=== PATIENT | female | born 1940 | race Caucasian/White ===

== ENCOUNTER 2017-01-05 08:42 | Day surgery (SDC) | payer MEDICARE, MEDICAID ==
[~2017-01-05 08:42] MED LIST: Acetaminophen TAB* 325 MG PO PRN; Buffered Lidocaine 0.9% SYRIN* 5 ML/SYR SYRINGE INTRADERM ONE; Cyclopentolate 1% OPTH.SOL* 2 ML BTL ONE; Flurbiprofen 0.03% OPTH.SOL* 2.5 ML BTL ONE; Lidocaine 2% EPI 1:200000 MPF* 20 ML VIAL ONE; Lidocaine 2% MPF* 2 ML VIAL ONE; Neomycin/Polymy/Dex OPTH.SUSP* MAXITROL 0.1% 5 ML ONE; Phenylephrine 2.5% OPTH.SOL* 2 ML BTL ONE; Povidone Iodine 5% OPTH* 30 ML BTL ONE; Proparacaine 0.5% OPHTH.SOL* 15 ML BTL ONE; acetaZOLAMIDE TAB* 250 MG ONE
[2017-01-05] MEDS ORDERED: Midazolam* 1 MG/ML 2 ML VIAL (2 MG) ONE (10:01)
[2017-01-05] MEDS ORDERED: fentaNYL* 50 MCG/ML 2 ML VIAL (100 MCG VIAL) ONE (10:01)
[2017-01-05 11:54] VITALS: BP 121/63
--- NOTE | 2017-01-05 14:49 | OP ---
OPERATIVE NOTE: DATE OF OPERATION: 01/05/17 DATE OF : 38 SURGEON: Jun Patel M.D. PREOPERATIVE DIAGNOSIS: Cataract right eye. POSTOPERATIVE DIAGNOSIS: Cataract right eye. OPERATIVE PROCEDURE: Phacoemulsification right eye with IOL and CTR PROCEDURE: The patient was brought to the operating room after being given 1/2% Alcaine with epinep hrine drops in the preoperative area. The eye was prepped and draped in the usual sterile fashion. Sterile drape and eyelid speculum were placed. Again, topical 1/2% Alcaine with epinephrine was gi lucia. A paracentesis incision was made at the 9 o'clock position with the No.75 blade. Clear cornea incision 2.2 x 2.2-mm was created at the 12 o'clock position starting at the anterior limbus using the 2.2-mm keratome. The anterior chamber was irrigated with 0.4 mL of 1% non-preservative intracam eral lidocaine and filled with DisCoVisc. A capsulorrhexis was completed using the cystotome and raphael e Utrata forceps. Hydrodissection was performed with balanced salt solution. The lens nucleus was r emoved with the Phacoemulsification handpiece without incident. Cortex was removed with the irrigat ion-aspiration handpiece. The capsular bag was re-inflated using DisCoVisc and an [id number] implant was inserted with the shooter followed by capsular tension ring a CTR 11. The irrigation-aspiratio n handpiece was used to remove all residual DisCoVisc. The eye was refilled with balanced salt solu tion and the wound checked and found to be watertight. Topical Maxitrol drops were given. [id number]/[facility] #: [id number]
== END 2017-01-05 11:51 | disposition home or self-care (01) ==
LOC: OREAST 08:42
PROVIDERS: ATTEND Specialist
DX: H25.811 Combined forms of age-related cataract, right eye (principal); H40.1424 Capsular glaucoma with pseudoexfoliation of lens, left eye, indeterminate stage; I10 Essential (primary) hypertension
CPT/HCPCS: A9270-GY; J2250; J3010; V2632

== ENCOUNTER 2024-05-02 08:29 | Observation (INO) ==
[2024-05-02 09:29] LABS: ABS Eosinophils 0.1 10^3/uL (0.0-0.5); ABS Lymphocytes 0.8 10^3/uL (1.0-4.8); ABS Monocytes 0.4 10^3/uL (0.0-0.9); ABS Neutrophils 3.6 10^3/uL (1.5-7.6); Eosinophil % 1.2 %; Hematocrit 34.2 % (35-45); Hemoglobin 11.6 g/dL (11.5-14.3); Lymphocyte % 16.1 %; Mean Corpuscular Hemoglobin 31.1 pg (27-33); Mean Corpuscular Hgb Conc 33.9 g/dL (31-36); Mean Corpuscular Volume 91.9 fL (80-97); Mean Platelet Volume 6.4 fL (7.5-11.2); Nucleated Red Blood Cells % 0.1 %/100WBC (0.0-0.8); Platelet Count 429 10^3/uL (150-450); Red Blood Count 3.72 10^6/uL (3.63-4.92); Red Cell Distribution Width 16.1 % (12-17)
[2024-05-02 10:06] LABS: Albumin 3.7 g/dL (3.2-5.2); Albumin/Globulin Ratio 1.2 (1-3); Calcium 8.7 mg/dL (8.6-10.3); Creatinine, Serum 0.64 mg/dL (0.51-0.95); Globulin 3.1 g/dL (2-4); Magnesium 2.1 mg/dL (1.9-2.7); Total Bilirubin 0.5 mg/dL (0.2-1.0); Total Protein 6.8 g/dL (6.4-8.9); eGFR CKD-EPI 86.5 (>60)
[2024-05-02 10:20] LABS: TSH Ultra Thyroid Stim Horm 9.13 mcIU/mL (0.34-5.60)
[2024-05-02] MEDS ORDERED: Lorazepam PYXIS KEY PRN (10:20)
[2024-05-02 11:17] LABS: High Sensitivity Troponin 1 Hr 44 pg/mL (<15)
[2024-05-02] MEDS: LORazepam 2 mg VIAL 1 ml IV PUSH ONE (11:28)
[2024-05-02 12:00] LABS: Urine Appearance Clear; Urine Bilirubin Negative (Negative); Urine Blood Negative (Negative); Urine Color Light-Yellow; Urine Glucose Negative (Negative); Urine Ketones Negative (Negative); Urine Nitrite Negative (Negative); Urine Protein Negative (Negative); Urine Specific Gravity 1.009 (1.002-1.030); Urine Urobilinogen Negative (Negative)
[2024-05-02 14:06] LABS: High Sensitivity Troponin 3 Hr 43 pg/mL (<15)
[2024-05-02] MEDS ORDERED: Sulfur Hexaflouride MICROSPHR 25 MG VIAL IV PRN (15:46)
[2024-05-02] MEDS: hydrALAZINE 20 mg/ml 1 ML Vial IV IV SLOW PU ONE (17:08)
[2024-05-02 17:40] LABS: T4, Total 8.61 mcg/dL (6.09-12.23)
[2024-05-02] MEDS: Enoxaparin 40 MG/0.4 ML SYR SUBCUT SCH (20:02)
[2024-05-02] MEDS: Lactated Ringers 1000 ml BAG 1,000 ML IV ONE (20:19)
[2024-05-02] MEDS ORDERED: hydrALAZINE 20 mg/ml 1 ML Vial IV IV SLOW PU PRN (22:28)
[2024-05-03 05:40] LABS: ABS Basophils 0.1 10^3/uL (0.0-0.1); ABS Eosinophils 0.1 10^3/uL (0.0-0.5); ABS Monocytes 0.5 10^3/uL (0.0-0.9); Eosinophil % 0.9 %; Hematocrit 38.4 % (35-45); Hemoglobin 13.2 g/dL (11.5-14.3); Lymphocyte % 18.7 %; Mean Corpuscular Hemoglobin 31.6 pg (27-33); Mean Corpuscular Hgb Conc 34.4 g/dL (31-36); Mean Corpuscular Volume 91.9 fL (80-97); Mean Platelet Volume 6.8 fL (7.5-11.2); Platelet Count 512 10^3/uL (150-450); Red Blood Count 4.18 10^6/uL (3.63-4.92); Red Cell Distribution Width 16.2 % (12-17); White Blood Count 5.6 10^3/uL (3.8-11.8)
[2024-05-03 06:13] LABS: Calcium 9.4 mg/dL (8.6-10.3); Creatinine, Serum 0.61 mg/dL (0.51-0.95); Magnesium 2.2 mg/dL (1.9-2.7); Potassium 3.8 mmol/L (3.5-5.0); eGFR CKD-EPI 87.6 (>60)
[2024-05-03] MEDS: Cholecalciferol (VIT D3) 1,000 unit TAB PO SCH (09:23)
[2024-05-03] MEDS: Memantine XR 14 mg CAP PO SCH (10:07)
[2024-05-03 13:24] VITALS: BP 126/73
== END 2024-05-03 14:55 ==
LOC: ED 08:29 → EDHOLD 08:29 → MEDTELE 20:35
PROVIDERS: ADMIT Internal Medicine; ATTEND Internal Medicine